=== PATIENT | male | born 1975 | race Caucasian/White ===

== ENCOUNTER 2020-08-05 23:13 | Emergency (ER) | payer SELFPAY ==
[~2020-08-05] VITALS: Ht 185.4 cm; Wt 104.3 kg
[2020-08-05 23:15] VITALS: BP 163/62
--- NOTE | 2020-08-05 23:15 | NUR ---
TO BED AMBULATORY
--- NOTE | 2020-08-05 23:45 | NUR ---
pt left without being seen. Dr. Dailey made aware.
== END 2020-08-05 23:45 | disposition left against medical advice (07) ==
LOC: MED 23:13
DX: M79.604 Pain in right leg (principal); Z53.21 Procedure and treatment not carried out due to patient leaving prior to being seen by health care provider